=== PATIENT | female | born 1945 | race Caucasian/White ===

== ENCOUNTER → 2018-08-17 | Outpatient (CLI) | payer MEDICARE ==
[~2018-08-17] MED LIST: AMLO5TAB7 PO; ASPI-630 PO; ATOR20TA PO; CALC-77 PO; CARV6.2511 PO; CYAN100031 PO; DOCU-109 PO; HYDR-3164 PO; HYDR12.58 PO; METH-38 PO; NAPR220T70 PO; SERT25TA PO
--- NOTE | 2018-08-17 16:02 | EKG ---
[facility] [address] [place] [address] Test Date: 2018-08-17 Test Time: 15:58:17 Pat Name: DEANDRE STODDARD Department: Room: Gender: F Captain Assistant: DANY : 1945 Requested By: STEPHANIA VALERO Order Number: [id number] Reading MD: Ryan Jane Measurements Intervals [place] Rate: 65 P: 71 MD: 182 QRS: 79 QRSD: 78 T: 107 QT: 406 QTc: 423 Interpretive Statements SINUS RHYTHM INTERPOLATED VENTRICULAR PREMATURE COMPLEX(ES) QRS(T) CONTOUR ABNORMALITY CONSISTENT WITH ANTEROSEPTAL INFARCT AGE UNDETERMINED ABNORMAL ECG RI6.01 No previous ECG available for comparison Electronically Signed On 08-18-2018 15:41:47 CLINICAL SUPPORT TECH by Ryan Jane
[2018-08-17 16:17] LABS: BASO % 1 % (0-3); EOS # 0.3 x10^3/uL (0.0-0.7); EOS % 4 % (0-3); HEMATOCRIT 40.1 % (36.0-47.0); HEMOGLOBIN 13.4 g/dL (12.0-15.5); LYMPH # 2.9 x10^3/uL (1.0-4.8); LYMPH % 35 % (24-48); MEAN CORPUSCULAR HEMOGLOBIN 33 pg (25-35); MEAN CORPUSCULAR HGB CONC 33 g/dL (31-37); MEAN CORPUSCULAR VOLUME 98 fL (79-100); MONO # 0.7 x10^3/uL (0.0-1.1); MONO % 8 % (0-9); NEUT # 4.3 x10^3uL (1.8-7.7); NEUT % 53 % (31-73); PLATELET COUNT 210 x10^3/uL (140-400); RED BLOOD COUNT 4.12 x10^6/uL (3.50-5.40); RED CELL DISTRIBUTION WIDTH 13.2 % (11.5-14.5); WHITE BLOOD COUNT 8.2 x10^3/uL (4.0-11.0)
[2018-08-17 16:45] LABS: ALBUMIN 4.1 g/dL (3.4-5.0); ALBUMIN/GLOBULIN RATIO 1.2 (1.0-1.7); CALCIUM 10.5 mg/dL (8.5-10.1); GFR 54.1; POTASSIUM 3.9 mmol/L (3.5-5.1); TOTAL BILIRUBIN 0.3 mg/dL (0.2-1.0); TOTAL PROTEIN 7.4 g/dL (6.4-8.2)
== END | disposition home or self-care (01) ==
LOC: SURGPAT 13:30
PROVIDERS: ATTEND Neurological Surgery
DX: Z01.818 Encounter for other preprocedural examination (principal); M48.062 Spinal stenosis, lumbar region with neurogenic claudication; M54.16 Radiculopathy, lumbar region
CPT/HCPCS: 36415; 80053; 85025; 87641; 93005

== ENCOUNTER 2018-08-24 07:19 | Day surgery (SDC) | payer MEDICARE ==
--- NOTE | 2018-08-19 15:32 | PREOP HP ---
DATE OF SERVICE: 08/24/2018 HISTORY OF PRESENT ILLNESS: The patient is a pleasant 73-year-old who is having problem with low back pain and pain, which radiates into her posterior thighs and legs. The problem started on the left side, but there is involvement of the bilateral pain. The problem has been present for years, but became significant about 14 months ago. She rates her pain as an 8-9/10 in the morning and then during the day 2-3/10. Walking causes significant pain following day. She takes Aleve. She takes epidural steroid injections, recently 6 weeks ago. She went through physical therapy in late 2017, which has made the problem worse. PAST MEDICAL HISTORY: Hypertension, dyslipidemia, depression, arthritis, PVC. PAST SURGICAL HISTORY: Breast biopsy, pericardial window, cataract surgery. FAMILY HISTORY: Cancer, heart disease, hypertension. SOCIAL HISTORY: Retired. . Smokes 1 pack per day for 50 years. Drinks alcohol 1-2 times per month. ALLERGIES: AMITRIPTYLINE, WELLBUTRIN AND PRILOSEC. CURRENT MEDICATIONS: Aleve, aspirin, hydrochlorothiazide, Coreg, sertraline, atorvastatin, amlodipine, vitamin B12, vitamin D3. REVIEW OF SYSTEMS: A 12-point review of systems was obtained and is noncontributory except for that mentioned above. PHYSICAL EXAMINATION: NEUROSURGERY EXAMINATION: GENERAL APPEARANCE: Alert, pleasant, in no distress. HEAD: Normocephalic and atraumatic. SKIN: Warm and dry. MUSCULOSKELETAL: Lumbar paraspinal muscle bulk is normal, restricted range of motion of the lumbar spine, [id number] tenderness of lower lumbar spine with palpation, normal range of motion of the lower extremities bilaterally. EXTREMITIES: No clubbing, cyanosis or edema. NEUROLOGIC: Alert, oriented x 3, normal recent and remote memory, strength 5/5 in bilateral lower extremities, sensory intact to light touch and normal bilateral lower extremities, reflexes are present and symmetric in the lower extremities bilaterally, negative straight leg raising bilaterally, normal gait. IMAGING: I reviewed a lumbar MRI scan. There are multilevel degenerative problems. She has good degree of stenosis present at L3-L4 along with neural foraminal and lateral recess narrowing. At L4-L5, there is more significant stenosis present with the thecal sac measuring 0.6 cm. At L5-S1, there is bulging disk and neural foraminal narrowing with effacement of right lateral thecal sac. ASSESSMENT/PLAN: I believe her problems are primarily related to the stenosis at L4-L5 as well as the right-sided nerve root compression at L5-S1. My recommendation is that she consider a bilateral microdecompressive surgery at L4-L5 combined with right-sided microdecompression, L5-S1. I spoke with her about the surgery and the risks involved. I explained that she may be in the future developing problems at L3-L4 and requiring further surgery at that location, but I felt the problem currently was in the lower 2 levels of her lower back. She would like to proceed. We will make the arrangements. STEPHANIA VALERO MD DR: CAMMY/j luis JOB#: [id number] / [id number] YUNIEL
[~2018-08-24] VITALS: Ht 154.9 cm; Wt 56.7 kg
[~2018-08-24 07:19] MED LIST changes: +BACITRACIN 50,000 UNIT in IV NORMAL SALINE 1000ML BAG 1,000 ML IRR ONE; +BUPIVAC MPF-EPI 0.5%-1:200000 30 ML VIAL. ONE; -CARV6.2511 PO; +CARV6.252 PO; -DOCU-109 PO; +GELATIN SPONGE SIZE 100. ONE; -HYDR-3164 PO; +HYDROmorphone 2 MG/ML VIAL IV PRN; +IV RINGERS,LACTATED 1000ML 1,000 ML IV SCH; +KETOROLAC 60 MG/2 ML INJ FOR OR. ONE; +LIDOCAINE 1% PF 2 ML VIAL. ID PRN; -METH-38 PO; +MORPHINE SULFATE 2 MG/ML VIAL. IV PRN; +ONDANSETRON PF 4 MG/2 ML VIAL. IV PRN; +PROCHLORPERAZINE 10 MG/2 ML VIAL. IV PRN; +THROMBIN TOPICAL 20,000 UNIT SPRAY.SYRN KIT TP ONE; +fentaNYL PF VIAL 100 MCG/2 ML VIAL IV PRN
[2018-08-24] MEDS ORDERED: ePHEDrine PF IN SALINE 50 MG/5 ML DISP.SYRIN IV ONE (08:16)
[2018-08-24] MEDS ORDERED: PHENYLEPHRINE in 0.9% NACL PF 1 MG/10 ML SYRINGE. IV ONE (08:16)
[2018-08-24] MEDS ORDERED: PROPOFOL 50 ML IV ONE (08:17)
[2018-08-24] MEDS ORDERED: ONDANSETRON PF 4 MG/2 ML VIAL. ONE (08:17)
[2018-08-24] MEDS ORDERED: DEXAMETHASONE SOD PHOS 20 MG/5 ML VIAL. ONE (08:17)
[2018-08-24] MEDS ORDERED: PROPOFOL 20 ML IV ONE (08:17)
[2018-08-24] MEDS ORDERED: LIDOCAINE 2% PF Vial for OR 5 ML VIAL. ONE (08:17)
[2018-08-24] MEDS ORDERED: ROCURONIUM 50 MG/5 ML VIAL. ONE (08:18)
[2018-08-24] MEDS ORDERED: REMIFENTANIL 2 MG VIAL. IV ONE (08:18)
[2018-08-24] MEDS ORDERED: fentaNYL PF VIAL 100 MCG/2 ML VIAL ONE ×2 (08:19→12:34)
[2018-08-24] MEDS ORDERED: NEOSTIGMINE METHYLSULFATE 5 MG/5 ML SYRINGE. ONE (09:55)
--- NOTE | 2018-08-24 10:26 | DISCH ---
DISCHARGE INSTRUCTIONS Condition on Discharge Condition on Discharge: Stable Activity After Discharge Activity Instructions for Disc: Activity as tolerated, Avoid exertion Bathing Instructions: Shower-keep dressing dry Lifting Instructions after Dis: No heavy lifting, No pulling or pushing, Do not lift >10 pounds Diet after Discharge Additional Diet Restrictions: resume home diet Wound Incision Care Wound/Incision Care: Ice to area for comfort Other wound/incision instructi: may remove dressing in 48 hrs if dry then may shower, no soaking Contacting the DRAlexey after DC Call your doctor for: Concerns you may have Follow-Up Follow up with: Dr. Valero's nurse in 2 weeks [phone] STEPHANIA VALERO MD Aug 24, 2018 10:26
[2018-08-24] MEDS ORDERED: DOCU-109 PO (10:38)
[2018-08-24] MEDS ORDERED: METH-38 PO (10:38)
[2018-08-24] MEDS ORDERED: HYDR-3164 PO (10:38)
[2018-08-24] MEDS ORDERED: DESFLURANE > 120 MINUTES IH ONE (12:03)
[2018-08-24] MEDS: fentaNYL PF VIAL 100 MCG/2 ML VIAL IV PRN ×2 (12:40→12:53)
[2018-08-24] MEDS ORDERED: HYDROcodone/APAP 5/325MG 1 TAB TABLET ONE (13:23)
[2018-08-24] MEDS ORDERED: HYDROcodone/APAP 5/325MG 1 TAB TABLET PO ONE (13:30)
[2018-08-24 14:40] VITALS: BP 115/68
--- NOTE | 2018-08-26 16:09 | PATHOLOGY ---
[facility] Accession Number: [id number] . 01 Material submitted: . LUMBAR DECOMPRESSION . 01 Clinical history: . Lumbar stenosis and neurogenic claudication, radiculopathy . 02 Diagnosis: "Lumbar decompression", decompression: - Decalcified bone, articular cartilage, periosteum, synovium, skeletal muscle, and fibroadipose connective tissue with reactive/degenerative changes and reactive synovial hyperplasia (see comment). (CLW:archana; 08/26/2018) QMS/08/26/2018 . 02 Comment: The synovium additionally has mild chronic inflammation, focal necrosis, and a foreign body type giant cell response/granulomatous inflammation. The synovial findings can be seen in the setting of rheumatoid arthritis. Correlation with clinical history, radiographic findings, and additional laboratory data is recommended. (CLW:archana; 08/26/2018) . 02 Electronically signed: . Zoya Bruno MD, Pathologist NPI- [id number] . 01 Gross description: . Received in formalin labeled "Guadalupe Aguirre, lumbar decompression," are several pieces of glistening, fibrous tissue measuring 6.1 x 4.2 x 1.5 cm in aggregate dimensions, containing small fragments of possible bone. The tissue submitted representatively in cassette A1, following decalcification. (TSD; 08/24/2018) TOB/TOB . 02 Pathologist provided ICD-10: M67.88, M51.36 . 02 CPT . 353752, 402231 Specimen Comment: A courtesy copy of this report has been sent to Specimen Comment: [phone], . Specimen Comment: Report sent to / DR PALACIOS Performed at: [address] [place], [place] [address] [address], [place], [place] [id number] MD Reji Tam MD Phone: [phone] Performed at: [address] [id number] MD Ron Mcnulty MD Phone: [phone]
--- NOTE | 2018-08-26 19:00 | OP ---
DATE OF SURGERY: 08/24/2018 PREOPERATIVE DIAGNOSIS: Lumbar spinal stenosis with neurogenic claudication, L4-L5 and L5-S1. OPERATION PERFORMED: 1. Bilateral lumbar micro decompressive hemilaminotomies L4-L5. 2. Right hemilaminotomy with decompression of dura and nerve root, L5-S1. The operation was done with EMG monitoring, SSEP monitoring, fluoroscopy, microscopic dissection. Abigail Loco assisted with the surgery. She assisted with the exposure, the microdecompression as well as closure. OPERATIVE INDICATIONS: The patient is a very pleasant 73-year-old woman who developed intractable back and bilateral leg pain, left greater than right and was found to have severe stenosis at L4-L5 and right-sided lateral recess narrowing at L5-S1 and I recommended 2-level lumbar microsurgical decompression. I spoke with her about the surgery, the risks, technique and expected postoperative course and she wished to go ahead. DESCRIPTION OF PROCEDURE: Following general endotracheal anesthesia, the patient was positioned prone on the operating room table. Lumbar region prepped and draped in standard fashion. EMMA hose and AV impulse boots were applied for DVT prophylaxis. Microscope was draped. Fluoroscopy was draped, brought into the field. Monitoring was established. Ancef 2 grams was given less than 1 hour prior to initiation of the surgery. Using fluoroscopic guidance, a midline incision was made from L4 through S1. I dissected down through skin and subcutaneous tissue and on the right side, exposed both L4-L5 and L5-S1. I brought in the microscope and using the high speed air drill, I burred down a generous hemilaminotomy first at L5-S1 and then working superiorly to L4-L5. By first drilling away with a high speed air drill the laminar opening exposing the ligamentum flavum beneath, I then peeled the ligamentum flavum away from medial to lateral and I did work laterally to the medial edge of the pedicle and performed a partial foraminotomy. I fully decompressed the entire region. I did palpate the disk. It was bulging slightly, but very firm and no diskectomy was warranted. This was at L5-S1 and the identical operation was done at L4-L5. I then went to the left side in a similar fashion, exposed L4-L5 and again through the microscope, burred down a generous hemilaminotomy and peeled away the thickened ligamentum flavum and performed a generous partial foraminotomy. There was considerable lateral stenosis and I gently and gingerly worked and peeled this material away. I did palpate the disk at L4-L5. It was firm and no diskectomy was warranted. I explored carefully. There were no retained fragments. Hemostasis was excellent. I did use bone wax as well as bipolar cautery wherever necessary for the decompression. I irrigated copiously. I explored bilaterally and then after I was pleased with the hemostasis in surgery, I closed the wound in layers with absorbable suture. Skin was closed with 4-0 subcuticular stitch. The operation went very well and the patient was taken to the recovery room uneventfully in excellent condition. I was quite pleased with the surgery. STEPHANIA VALERO MD DR: CAMMY/j luis JOB#: [id number] / [id number]
== END 2018-08-24 14:40 | disposition home or self-care (01) ==
LOC: SURG 07:19
PROVIDERS: ATTEND Neurological Surgery
DX: M48.062 Spinal stenosis, lumbar region with neurogenic claudication (principal); I10 Essential (primary) hypertension; E78.5 Hyperlipidemia, unspecified; F32.9 Major depressive disorder, single episode, unspecified; M19.90 Unspecified osteoarthritis, unspecified site; Z98.890 Other specified postprocedural states; Z82.49 Family history of ischemic heart disease and other diseases of the circulatory system; F17.210 Nicotine dependence, cigarettes, uncomplicated; Z72.89 Other problems related to lifestyle; Z88.8 Allergy status to other drugs, medicaments and biological substances; Z79.82 Long term (current) use of aspirin; Z79.899 Other long term (current) drug therapy
CPT/HCPCS: 63047; 63048; 76000; 97162; 97530; A7015; G8978; G8979; G8980; J0690; J1100; J1885; J2001; J2405; J2704; J2710; J3010; J3490; J7030; J7120; J2370

== ENCOUNTER 2021-03-14 00:06 | Emergency (ER) | payer MEDICARE ==
[~2021-03-14] VITALS: Ht 157.5 cm; Wt 72.0 kg
[~2021-03-14 00:06] MED LIST changes: +AMLO-186 PO; -AMLO5TAB7 PO; -BACITRACIN 50,000 UNIT in IV NORMAL SALINE 1000ML BAG 1,000 ML IRR ONE; -BUPIVAC MPF-EPI 0.5%-1:200000 30 ML VIAL. ONE; +CARV6.2511 PO; -CARV6.252 PO; +DOCU-109 PO; -GELATIN SPONGE SIZE 100. ONE; +HYDR-3164 PO; -HYDROmorphone 2 MG/ML VIAL IV PRN; -IV RINGERS,LACTATED 1000ML 1,000 ML IV SCH; -KETOROLAC 60 MG/2 ML INJ FOR OR. ONE; -LIDOCAINE 1% PF 2 ML VIAL. ID PRN; +METH-38 PO; -MORPHINE SULFATE 2 MG/ML VIAL. IV PRN; -ONDANSETRON PF 4 MG/2 ML VIAL. IV PRN; -PROCHLORPERAZINE 10 MG/2 ML VIAL. IV PRN; -THROMBIN TOPICAL 20,000 UNIT SPRAY.SYRN KIT TP ONE; -fentaNYL PF VIAL 100 MCG/2 ML VIAL IV PRN
--- NOTE | 2021-03-14 00:15 | PHYS DOC ---
General Adult EDM: Chief Complaint: BACK PAIN - NO INJURY HPI: HPI: Patient is a 75-year-old female presenting with POV for back pain. Reports onset was at 11 PM last night, approximately 1-1/2 hours prior to arrival. Was at rest, no trauma or inciting event, reports having pain that originated deep in her back and radiated around bilateral chest burns to the front of her chest. Leaning forward makes better, laying down, standing up and deep breaths in and out make worse. Pain is deep. Besides radiation from back to front, there is no radiation to extremities or jaw. Denies history of coronary artery disease but does admit prior history of pericardial effusion requiring pericardiocentesis and subsequent window in 2016. She takes 81 mg aspirin daily and high intensity statin, reports taking 324 mg aspirin in addition to her 81 mg aspirin prior to arrival because she was scared. Reports being seen in outpatient setting by Dr. Payne, wig sales consultant at [facility]. Denies any recent sickness, fever, URI symptoms, falls, trauma, cough, abdominal pain, dy suria, no recent sick contacts, no travel, no major changes in health. She admits to tobacco use, denies alcohol and illicit drug use Review of Systems: Review of Systems: Fourteen body systems of review of systems have been reviewed. See HPI for pertinent positives and negative responses, other gomez all other systems are negative, non-pertinent or non-contributory Heart Score: C/O Chest Pain: Yes HEART Score for Chest Pain: HEART Score for Chest Pain Response (Comments) Value History Moderately Suspicious 1 ECG Normal 0 Age > 65 2 Risk Factors >3 Risk Factors or Hx CAD 2 Troponin < Normal Limit 0 Total 5 Risk Factors: Risk Factors: DM, Current or recent (<one month) smoker, HTN, HLP, family history of CAD, obesity. Risk Scores: Score 0 - 3: 2.5% MACE over next 6 weeks - Discharge Home Score 4 - 6: 20.3% MACE over next 6 weeks - Admit for Clinical Observation Score 7 - 10: 72.7% MACE over next 6 weeks - Early Invasive Strategies Allergies: Allergies: Allergies Coded Allergies Type Severity Reaction Last Updated Verified amitriptyline Adverse Reaction Intermediate Hives 08/17/18 Yes bupropion Adverse Reaction Intermediate Hives 08/17/18 Yes omeprazole Adverse Reaction Intermediate Hives 08/17/18 Yes Physical Exam: PE: Constitutional: Well developed, well nourished, no acute distress, non-toxic appearance. HENT: Normocephalic, atraumatic, bilateral external ears normal, oropharynx moist, no oral exudates, nose normal. Eyes: PERRLA, EOMI, conjunctiva normal, no discharge. Neck: Normal range of motion, no tenderness, supple, no stridor. Cardiovascular: Heart rate regular, sinus rhythm, no murmurs rubs or gallops Lungs & Thorax: Bilateral breath sounds clear to auscultation Abdomen: Bowel sounds normal, soft, no tenderness, no masses, no pulsatile masses. Nonsurgical abdomen, no peritoneal signs Skin: Warm, dry, no erythema, no rash. Back: No tenderness, no CVA tenderness. Extremities: No tenderness, no cyanosis, no clubbing, ROM intact, no edema. Neurologic: Alert and oriented X 3, grossly normal motor & sensory function, no focal deficits noted. Psychologic: Affect normal, judgement normal, mood normal. Current Patient Data: Labs: Laboratory Tests Test 03/14/21 01:51 03/14/21 02:40 White Blood Count 13.9 x10^3/uL Red Blood Count 3.84 x10^6/uL Hemoglobin 12.2 g/dL Hematocrit 36.8 % Mean Corpuscular Volume 96 fL Mean Corpuscular Hemoglobin 32 pg Mean Corpuscular Hemoglobin Concent 33 g/dL Red Cell Distribution Width 13.6 % Platelet Count 226 x10^3/uL Neutrophils (%) (Auto) 76 % Lymphocytes (%) (Auto) 13 % Monocytes (%) (Auto) 9 % Eosinophils (%) (Auto) 2 % Basophils (%) (Auto) 0 % Neutrophils # (Auto) 10.5 x10^3/uL Lymphocytes # (Auto) 1.8 x10^3/uL Monocytes # (Auto) 1.2 x10^3/uL Eosinophils # (Auto) 0.3 x10^3/uL Basophils # (Auto) 0.1 x10^3/uL Sodium Level 144 mmol/L Potassium Level 3.6 mmol/L Chloride Level 106 mmol/L Carbon Dioxide Level 27 mmol/L Anion Gap 11 Blood Urea Nitrogen 34 mg/dL Creatinine 1.1 mg/dL Estimated GFR (Cockcroft-Gault) 48.2 Glucose Level 135 mg/dL Calcium Level 9.2 mg/dL Troponin I Quantitative < 0.017 ng/mL XI-Vut-Q-Type Natriuretic Peptide 258 pg/mL D-Dimer (Ayesha) 1.06 ug/mlFEU Current Medications Medications (Trade) Dose Ordered Sig/Stephon Route PRN Reason Start Time Stop Time Status Last Admin Dose Admin Nitroglycerin (Nitrostat) 0.4 mg PRN Q5MIN PRN SL CP RATING > 1/10 03/14/21 01:00 03/15/21 00:59 03/14/21 00:53 Iohexol (Omnipaque 300 Mg/ml) 60 ml 1X ONCE IV 03/14/21 03:30 03/14/21 03:31 Cancel Info (CONTRAST GIVEN -- Rx MONITORING) 1 each PRN DAILY PRN MC SEE COMMENTS 03/14/21 03:30 03/16/21 03:29 Iohexol (Omnipaque 350 Mg/ml) 100 ml 1X ONCE IV 03/14/21 03:30 03/14/21 03:31 DC 03/14/21 03:35 Morphine Sulfate (Morphine Sulfate) 4 mg 1X ONCE IV 03/14/21 03:45 03/14/21 03:46 DC 03/14/21 03:54 Vital Signs: Vital Signs Date Time Temp Pulse Resp B/P (MAP) Pulse Ox O2 Delivery O2 Flow Rate FiO2 03/14/21 00:15 97.8 70 18 170/74 (106) 97 Room Air 97.8 Vital Signs Date Time Temp Pulse Resp B/P (MAP) Pulse Ox O2 Delivery O2 Flow Rate FiO2 03/14/21 00:15 97.8 70 18 170/74 (106) 97 Room Air 97.8 EKG: EKG: EKG ordered and interpreted by myself at 011 9 hours as sinus rhythm with occasional PVC at 77 bpm, QTC 484 otherwise unremarkable intervals, no axis deviation, no acute ischemic findings, no STEMI EKG ordered and interpreted by myself at 0209 hrs. as sinus rhythm with PVCs at 71 bpm, unremarkable intervals, no axis deviation, T wave inversions noted to V5 and V6 otherwise no STEMI Radiology/Procedures: Radiology/Procedures: Chest AP portable at 0102: Reason for examination: Chest pain. The heart size is normal. Mediastinum is unremarkable. Lung jara are clear. No acute bony abnormalities are seen. IMPRESSION: No acute cardiopulmonary disease evident. Electronically signed by: Mima Smith MD (03/14/2021 1:54 AM) REENA //////////////////// CT angiogram of the chest with contrast: Reason for examination: Chest pain. Helical images were obtained through the chest with intravenous administration of 75 cc Omnipaque 350 using angiographic protocol. 3-D MIPS reconstruction was performed in sagittal and coronal planes. Exposure: One or more of the following individualized dose reduction techniques were utilized for this examination: 1. Automated exposure control 2. Adjustment of the mA and/or kV according to patient size 3. Use of iterative reconstruction technique. No abnormality seen at the thyroid gland. The trachea and mainstem bronchi show no intraluminal lesions. No abnormality seen at the esophagus. The thoracic aorta is normal in course and caliber with some arteriosclerotic vascular calcification but no aneurysmal dilatation or dissection. The heart size is enlarged with a small amount of pericardial fluid. There is no evidence of pulmonary embolus. The lung jara show some pleural thickening/dependent atelectasis posteriorly at the lung bases, right greater than left. No consolidated infiltrates or pleural effusions are seen. No acute bony abnormality seen in the thorax. No abnormality seen in the visualized portions of the liver, spleen or adrenal glands. IMPRESSION: No evidence of pulmonary embolus. Pleural thickening versus dependent atelectasis posteriorly at both lung bases, right greater than left. No other acute cardiopulmonary disease evident. Electronically signed by: Mima Smith MD (03/14/2021 3:59 AM) REENA Course & Med Decision Making: Course & Med Decision Making Discussed with the patient all findings and diagnostic testing. I discussed most likely diagnosis of chest/back pain of unknown etiology, likely self-limiting and musculoskeletal in etiology. With that said, I reviewed heart score with patient, I discussed despite thorough work-up in ER she is high risk for adverse cardiac events and recommended hospital admission for cardiac observation, she declined. She cites having good access to primary care and wig sales consultant in outpatient setting and prefers to follow-up with them by the end of the week. Given that she has good access to care and is previously established with her wig sales consultant at [facility], I feel this is reasonable. I did recommend admission again but patient and were adamant about discharge home. As such, I stressed need for close outpatient follow-up to review today's ER visit. Strict return precautions were also discussed at length with good understanding by patient. Patient voiced understanding and agreement with the plan. Patient knows to come back for repeat evaluation if concerning signs or symptoms present prior to outpatient follow-up. Hemodynamically stable, ambulatory and well-appearing at time of disposition. Dragon Disclaimer: Dragon Disclaimer: This electronic medical record was generated, in whole or in part, using a voice recognition dictation system. Ultrasound Ultrasound : Ultrasound: normal Progress Bedside ultrasound performed and interpreted by myself, subxiphoid view of heart unremarkable for any acute/emergent abnormalities. No significant pericardial effusion seen, no gross heart wall abnormalities noted Departure Departure Impression: Primary Impression: Nonspecific chest pain Disposition: HOME / SELF CARE / HOMELESS Condition: STABLE Referrals: JAMES PALACIOS MD (PCP) Patient Instructions: Chest Pain (Nonspecific) Additional Instructions: You were seen for chest pain. Your workup did not show any acute abnormalities today, but does not indicate that you do not have underlying cardiovascular disease or could suffer from an adverse cardiac event. It was recommended that you be admitted for cardiac observation but you declined. As such, it is pertinent that you contact your primary care and wig sales consultant first thing in the morning to review ER visit today and need for close outpatient follow-up. You should return to the ED if you develop worsening chest pain, shortness of breath, fever, abnormal sweating, leg swelling, or any other new or concerning symptoms. KARY STEWART DO Mar 14, 2021 00:15
[2021-03-14] MEDS ORDERED: NITROGLYCERIN SUBLINGUAL 0.4 MG BOTTLE OF 25. SL PRN (01:00)
--- NOTE | 2021-03-14 01:56 | RAD ---
Chest AP portable at 0102: Reason for examination: Chest pain. The heart size is normal. Mediastinum is unremarkable. Lung jara are clear. No acute bony abnormali ties are seen. IMPRESSION: No acute cardiopulmonary disease evident. Electronically signed by: Mima Smith MD (03/14/2021 1:54 AM) STEVEN
[2021-03-14 02:09] LABS: BASO # 0.1 x10^3/uL (0.0-0.2); BASO % 0 % (0-3); EOS # 0.3 x10^3/uL (0.0-0.7); EOS % 2 % (0-3); HEMATOCRIT 36.8 % (36.0-47.0); HEMOGLOBIN 12.2 g/dL (12.0-15.5); LYMPH # 1.8 x10^3/uL (1.0-4.8); LYMPH % 13 % (24-48); MEAN CORPUSCULAR HEMOGLOBIN 32 pg (25-35); MEAN CORPUSCULAR HGB CONC 33 g/dL (31-37); MEAN CORPUSCULAR VOLUME 96 fL (79-100); MONO # 1.2 x10^3/uL (0.0-1.1); MONO % 9 % (0-9); NEUT # 10.5 x10^3/uL (1.8-7.7); NEUT % 76 % (31-73); PLATELET COUNT 226 x10^3/uL (140-400); RED BLOOD COUNT 3.84 x10^6/uL (3.50-5.40); RED CELL DISTRIBUTION WIDTH 13.6 % (11.5-14.5); WHITE BLOOD COUNT 13.9 x10^3/uL (4.0-11.0)
--- NOTE | 2021-03-14 02:12 | EKG ---
[facility] [address] [place] [address] Test Date: 2021-03-14 Test Time: 02:03:11 Pat Name: DEANDRE STODDARD Department: Room: Gender: F Travel Agency Manager: : 1945 Requested By: KARY STEWART Order Number: [id number] Reading MD: Measurements Intervals [place] Rate: 71 P: 31 [place]: 164 QRS: 26 QRSD: 76 T: 51 QT: 404 QTc: 444 Interpretive Statements SINUS RHYTHM INTERPOLATED VENTRICULAR PREMATURE COMPLEX(ES) LEFT ATRIAL ABNORMALITY ABNORMAL ECG RI6.02 Compared to ECG 03/14/2021 00:13:33 Prolonged QT interval no longer present
--- NOTE | 2021-03-14 02:13 | EKG ---
[facility] [address] [place] [address] Test Date: 2021-03-14 Test Time: 00:13:33 Pat Name: DEANDRE STODDARD Department: Room: Gender: F Blockman: : 1945 Requested By: KARY STEWART Order Number: [id number] Reading MD: Measurements Intervals [place] Rate: 77 P: 31 [place]: 158 QRS: 28 QRSD: 80 T: 15 QT: 426 QTc: 484 Interpretive Statements SINUS RHYTHM INTERPOLATED VENTRICULAR PREMATURE COMPLEX(ES) LEFT ATRIAL ABNORMALITY PROLONGED QT ABNORMAL ECG RI6.02 No previous ECG available for comparison
[2021-03-14 02:19] LABS: CALCIUM 9.2 mg/dL (8.5-10.1); CREATININE 1.1 mg/dL (0.6-1.0); GFR 48.2; POTASSIUM 3.6 mmol/L (3.5-5.1)
[2021-03-14] MEDS ORDERED: CONTRAST GIVEN. MC PRN (03:30)
[2021-03-14] MEDS ORDERED: IOHEXOL 350 MG/ML 100 ML VIAL. IV ONE (03:30)
[2021-03-14] MEDS ORDERED: IOHEXOL 300 MG/ML 100ML VIAL. IV ONE (03:30)
[2021-03-14] MEDS ORDERED: MORPHINE SULFATE 4 MG/ML VIAL. IV ONE (03:45)
--- NOTE | 2021-03-14 04:01 | RAD ---
CT angiogram of the chest with contrast: Reason for examination: Chest pain. Helical images were obtained through the chest with intravenous administration of 75 cc Omnipaque 350 using angiographic protocol. 3-D MIPS reconstruction was performed in sagittal and coronal planes. Exposure: One or more of the following individualized dose reduction techniques were utilized for thi s examination: 1. Automated exposure control 2. Adjustment of the mA and/or kV according to patient size 3. Use of iterative reconstruction technique. No abnormality seen at the thyroid gland. The trachea and mainstem bronchi show no intraluminal lesio ns. No abnormality seen at the esophagus. The thoracic aorta is normal in course and caliber with reinaldo e arteriosclerotic vascular calcification but no aneurysmal dilatation or dissection. The heart size is enlarged with a small amount of pericardial fluid. There is no evidence of pulmonary embolus. The lung jara show some pleural thickening/dependent atelectasis posteriorly at the lung bases, right g reater than left. No consolidated infiltrates or pleural effusions are seen. No acute bony abnormalit y seen in the thorax. No abnormality seen in the visualized portions of the liver, spleen or adrenal glands. IMPRESSION: No evidence of pulmonary embolus. Pleural thickening versus dependent atelectasis posteriorly at both lung bases, right greater than le ft. No other acute cardiopulmonary disease evident. Electronically signed by: Mima Smith MD (03/14/2021 3:59 AM) REENA
[2021-03-14 04:30] VITALS: BP 116/70
== END 2021-03-14 04:42 | disposition home or self-care (01) ==
LOC: ER 00:06
DX: R07.89 Other chest pain (principal); Z88.8 Allergy status to other drugs, medicaments and biological substances
CPT/HCPCS: 36415; 71045; 71275; 80048; 83880; 84484; 85025; 85379; 93005; 96374; 99285; J2270; Q9967

== ENCOUNTER → 2021-06-27 | Outpatient (CLI) | payer MEDICARE ==
[~2021-06-27] MED LIST changes: +BUPIVACAINE MPF 0.25% 10 ML VIAL. ONE; +CHOL10004 PO; +IOHEXOL 180 MG/ML 10 ML VIAL. ONE; +methylPREDNISolone ACETATE 80 MG/ML VIAL. ONE
--- NOTE | 2021-06-27 15:41 | PDOC1 ---
INITIAL PAIN CONSULT DATE OF SERVICE: DOS: DATE: 06/27/21 TIME: 15:32 CHIEF COMPLAINT: Chief Complaint: Mid upper back pain Right shoulder joint pain Right knee joint pain HISTORY OF PRESENT ILLNESS: 75-year-old female presents with history of pain mid upper back as well as the right shoulder and right knee for many years worse over the past several months patient reports no specific injury or accident that she is aware of is been getting worse with time and general daily activities. Patient reports pain in the mid upper back slightly more on the right than left started in February of this year without any specific injury is noted patient reports her right shoulder is the most painful area also right knee pain she has osteoarthritis documented in both these areas from previous x-rays although mild. Patient reports pain in the mid upper back is painful as well patient scribes pain is constant and throbbing in the back radiating the back as well above and below the shoulder blades medially, also laterally to the midaxillary line more on the right than the left as well. Patient reports is worse at night disturbs her from sleep about once or twice nightly does affect her bowel bladder control or ability to walk significantly except for the right knee which is worse with stepping on stairs or curbs her weight on her right leg. Right shoulder is tender with repetitive motions reaching forward and especially laterally with weightbearing reaching over her head with her right arm she is unable to do with the arm at this time secondary to pain in the shoulder. Patient rates her disability of 0- 10 10 being the worst is a 6 with family responsibilities recreation social act ivity and self-care 7 with occupation and 7 with life support activities specially sleeping. Patient did have MRI scan of thoracic spine showing multilevel degenerative disc disease with central disc protrusion at T7-8 contacting the anterior thoracic cord without cord deformation. Patient has right shoulder x-ray showing mild degenerative changes without fracture or acute dislocations no osteophyte formations as well. PAST MEDICAL HISTORY: PMH: Hypertension, vertigo, premature ventricular contractions, arthritis, osteopenia PREVIOUS SURGERIES: Past Surgical Hx: Right wrist surgery, tonsillectomy, bilateral cataract extractions, lumbar decompression, pericardial window CURRENT MEDICATIONS: Current Meds: Active Scripts Medications Dose Route/Sig Max Daily Dose Days Date Category Dose Instructions Vitamin D3 (Vitamin D) 25 Mcg Tablet 25 Mcg PO DAILY 06/27/21 Reported 1,000 UNITS = 25 MCG B-12 (Cyanocobalamin (Vitamin B-12)) 1,000 Mcg Tablet.er 1,500 Mcg PO DAILY 08/17/18 Reported Aleve (Naproxen Sodium) 220 Mg Tablet 220 Mg PO BID 08/17/18 Reported Amlodipine Besylate 5 Mg Tablet 5 Mg PO HS 08/17/18 Reported Lipitor (Atorvastatin Calcium) 20 Mg Tablet 20 Mg PO HS 08/17/18 Reported Zoloft (Sertraline Hcl) 25 Mg Tablet 25 Mg PO DAILY 08/17/18 Reported Carvedilol (Carvedilol) 6.25 Mg Tablet 6.25 Mg PO BIDWMEALS 08/17/18 Reported Hydrochlorothiazide Tablet (Hydrochlorothiazide) 12.5 Mg Tablet 12.5 Mg PO DAILY 08/17/18 Reported Aspirin 81 Mg Tab.chew 81 Mg PO DAILY 08/17/18 Reported Calcium + D3 Er Tablet (Calcium Carb & Cit/Vitamin D3) 1 Each Tablet.er 1 Each PO DAILY 08/17/18 Reported ALLERGIES; Allergies: Coded Allergies: amitriptyline (Verified Adverse Reaction, Intermediate, Hives, 08/17/18) bupropion (Verified Adverse Reaction, Intermediate, Hives, 08/17/18) omeprazole (Verified Adverse Reaction, Intermediate, Hives, 08/17/18) FAMILY HISTORY: Family Hx: Heart disease SOCIAL HISTORY: Social Hx: Patient drinks alcohol very rarely does not use any illegal illicit recreational drugs smoke cigarettes about 1 pack a day and has for 60 years continues to smoke patient is lives locally in [facility] and reports she is currently retired. REVIEW OF SYSTEMS: ROS: Positive for those items mentioned in history of present illness, all systems are reviewed, otherwise negative ,and are complete full and well-documented on patient's chart. PHYSICAL EXAM: VS: Blood pressure is 138/58 pulse 61 respirations 16 temperature is 98.1 F height 5 foot 1 his weight is 112 pounds PE: PHYSICAL EXAMINATION: GENERAL: The patient is awake, alert, oriented, appropriate, very pleasant in demeanor. HEENT: Shows normocephalic, atraumatic. Extraocular movements are intact and symmetrical. Oral cavity: Mucous membranes moist and pink. NECK: Shows anterior throat supple without palpable lymphadenopathy noted. Swallow reflex symmetrical. CHEST: Shows normal on inspection. Breath sounds are clear bilaterally, distant and somewhat coarse but no rales or rhonchi auscultated. HEART: Shows S1, S2 clear. No murmurs auscultated. ABDOMEN: Soft, nontender, nondistended. No palpable organomegaly is noted. No rebound or guarding demonstrated. BACK: Shows spine grossly in the midline. Normal-appearing cervical lordotic curvature. There is slightly increased thoracic kyphosis, some minor flattening of the lumbar lordotic curvature. Thoracic paraspinous muscles show symmetrical on inspection with palpation some significant tenderness bilaterally in the mid to upper distribution of the thoracic paraspinous musculature bilaterally but without specific radiation without trigger points asymmetry or atrophy or hyp ertrophy. Lumbar paraspinous muscles show symmetrical on inspection, on palpation shows some moderate tenderness diffusely throughout the upper, middle and lower distribution of the paraspinous muscles bilaterally and also into the lower thoracic paraspinous musculature, firm and tender, but without specific trigger points, without radiation of pain. The patient has good rotational motion of the lumbar spine, both laterally as well as extension and flexion without significant difficulty. No tenderness over the spinous processes, sacrum or sacroiliac regions. EXTREMITIES: Lower extremities show deep tendon reflexes 2+ in the patellar and tendo calcaneus tendons. Motor exam is 5 on a scale of 5 with right dorsiflexion, extension, quadriceps and hamstring flexion and 5/5 on the left. Peripheral pulses are 1+ posterior tibial. No peripheral edema is noted bilaterally. Lower extremities are warm and dry to touch, equal in color and appearance. Patient's right knee shows significant tenderness with medial and lateral collateral ligament palpation but not over the patellar tendon shows good range of motion however without crepitus or ratcheting as does the left. Upper extremity show deep tendon reflexes 2+ in the bicep tricep tendons, motor exam is 5 out of 5 on the left and 4-5 on the right with engraver picture strength bicep and tricep flexion. Patient's right shoulder shows significant tenderness over the anterior aspect of the deltoid as well as the acromioclavicular region with moderate tenderness with abduction very tender past 45 degrees patient is unable to raise her right hand over her head secondary to pain. Patient shows significant pain with shoulder shrug and resistance on the right but not the left history with abduction, as she is only able to abduct the right side about 45 degrees left side is 90 degrees plus. SKIN: Shows warm and dry, good turgor. No edema. No sores, rashes or bruising throughout. IMPRESSION: Impression: 75-year-old female with long history of mid upper back pain and radicular fashion Thoracic MRI scan as noted Right shoulder joint pain with osteoarthritis Right knee joint pain with osteoarthritis Hypertension Arthritis Osteopenia Plan: Options were discussed the case including conservative management is physical therapies interventional techniques. Patient like to pursue interventional techniques. As her right shoulder is her chief complaint we discussed intra-articular injection of the glenohumeral joint using descriptions as well as anatomical models to describe the procedure. Risk were discussed including not limited to bleeding flexion possibly intravascular injection se quelae spread local anesthetic numbness side effects steroid medication exposure fluoroscopy, and poor results regarding pain control. Patient understands wished to proceed. Patient supine position under sterile prep and drape using C-arm fluoroscopic gu idance patient's right shoulder was visualized and using 25-gauge needle 1% lidocaine was used to topically anesthetized area over the glenohumeral joint on the right. Using a 22-gauge Quincke needle with stylette the joint was entered under direct fluoroscopic visualization without difficulty stylet was removed at this time 2 cc of contrast was injected with good intra-articular spread in the shoulder joint without uptake. At this time 3 cc of 0.25% bupivacaine and 80 mg Depo-Medrol was then injected into the joint. Needle was removed and sterile bandage was applied. Patient tolerated the procedure well and had no complications. DILMA BROWN MD Jun 27, 2021 15:40
--- NOTE | 2021-06-27 15:42 | PDOC4 ---
Procedure Note: ICD 10 Code: ICD 10 Code: M2 5.511 M1 9.011 Procedure Note: Patient was consented for right intra-articular shoulder joint injection, glenohumeral with fluoroscopic guidance. Risk were discussed including not limited to bleeding infection possibly intravascular injection sequelae, spread local anesthetic numbness, side effects steroid medication, exposure fluoroscopy, and poor results regarding pain control. Patient understands wishes to proceed. Patient supine position under sterile prep and drape using C-arm fluoroscopic guidance patient's right shoulder was visualized and using 25-gauge needle 1% lidocaine was used to topically anesthetized area over the glenohumeral joint on the right. Using a 22-gauge Quincke needle with stylette the joint was entered under direct fluoroscopic visualization without difficulty stylet was removed at this time 2 cc of contrast was injected with good intra-articular spread in the shoulder joint without uptake. At this time 3 cc of 0.25% bupivacaine and 80 mg Depo-Medrol was then injected into the joint. Needle was removed and sterile bandage was applied. Patient tolerated the procedure well and had no complications. DILMA BROWN MD Jun 27, 2021 15:42
== END | disposition home or self-care (01) ==
LOC: PNCL 13:56
PROVIDERS: ATTEND Anesthesiology
DX: M19.011 Primary osteoarthritis, right shoulder (principal); M25.561 Pain in right knee; I10 Essential (primary) hypertension; M17.11 Unilateral primary osteoarthritis, right knee; F32.9 Major depressive disorder, single episode, unspecified; F17.210 Nicotine dependence, cigarettes, uncomplicated; Z79.82 Long term (current) use of aspirin; Z79.899 Other long term (current) drug therapy; Z98.890 Other specified postprocedural states; Z72.89 Other problems related to lifestyle; Z88.8 Allergy status to other drugs, medicaments and biological substances
CPT/HCPCS: 20610; 77002; J1040; J3490; Q9965

== ENCOUNTER → 2021-07-25 | Outpatient (CLI) | payer MEDICARE ==
[~2021-07-25] MED LIST changes: -BUPIVACAINE MPF 0.25% 10 ML VIAL. ONE; +methylPREDNISolone ACETATE 40 MG/ML VIAL. ONE
--- NOTE | 2021-07-25 11:27 | PDOC ---
Progress Note - Pain Clinic Date of Service: DOS: DATE: 07/25/21 TIME: 11:23 Diagnosis: Dx: Cervical radiculopathy with cervical degenerative disc disease Thoracic radiculopathy with thoracic degenerative disease Right shoulder pain with osteoarthritis Right knee joint pain with osteoarthritis History or Present Illness: HPI: 76-year-old female returns for follow-up status post right intra-articular shoulder joint injection patient reports about 30% improvement in his shoulder but still significant pain in the arm notices new pain that is in the neck and upper shoulder radiating through the shoulder into the right arm. Patient reports has become much more noticeable since her last visit still has excellent rotation of motion with the right shoulder and pain in the right arm however has become more noticeable in the neck as well patient reports now radiating from the neck into the arm much more than it was previously patient reports is an 8 on scale 10 is worse over the past week 6 on average 5 its least and is a 5 today patient was aching tight radiating worse with lifting items reaching forward reaching overhead with the right hand repetitive motions with the right arm and shoulder as well with pain in the base of the neck causing occasional headaches on the right side. Patient reports no bowel or bladder incontinence at this time patient reports she has been recent activity as tolerated but the r ight arm is limiting her fairly significantly. Patient reports no overt motor loss but some fine motor difficulties with the right hand when the pain is at its worst. Physical Exam: VS: Blood pressure is 116/77 pulse 67 respirations 18 temperature 98.5 F height 5 feet 1 inches weight is 112 pounds PE: PHYSICAL EXAMINATION: GENERAL: The patient is awake, alert, oriented, appropriate, very pleasant in demeanor HEENT: Shows normocephalic, atraumatic. Extraocular movements are intact and symmetrical. Oral cavity: Mucous membranes moist and pink. NECK: Shows anterior throat supple without palpable lymphadenopathy noted. Swallow reflex symmetrical. CHEST: Shows normal on inspection. Breath sounds are clear bilaterally, distant but no rales or rhonchi. HEART: Shows S1, S2 clear. No murmurs auscultated. ABDOMEN: Soft, nontender, nondistended. No palpable organomegaly is noted. BACK: Shows spine grossly in the midline. Normal-appearing cervical lordotic curvature. Cervical paraspinous muscles show symmetrical with inspection, palpation some moderate tenderness diffusely bilaterally in the inferior aspect the cervical paraspinous musculature more on the right than the left and in 2 the superior medial trapezius but without specific trigger points. Patient shows full rotation motion cervical spine both laterally as well as full extension full forward flexion without significant difficulty. There is slightly increased thoracic kyphosis, some minor flattening of the lumbar lordotic curvature. Lumbar paraspinous muscles show symmetrical on inspection, on palpation shows some moderate tenderness diffusely throughout the upper, middle and lower distribution of the paraspinous muscles, but without specific trigger points, without radiation of pain. The patient has good rotational motion of the lumbar spine, both laterally as well as extension and flexion without significant difficulty. No tenderness over the spinous processes, sacrum or sacroiliac regions. EXTREMITIES: Upper extremities show deep tendon reflexes 2+ in the biceps and triceps tendons. Motor exam is 4 on a scale of 5 with right medical radiation therapist, biceps and triceps flexion and 5/5 on the left. Peripheral pulses are 2+ radial. No peripheral edema is noted bilaterally. Upper extremities are warm and dry to touch, equal in color and appearance. SKIN: Shows warm and dry, good turgor. No edema. No sores, rashes or bruising throughout. Procedure: Procedure: Options were discussed with the patient. Patient chart reviews her current medication regimen updated current review of systems updated today as well. We will proceed with a cervical epidural steroid injection today with fluoroscopic guidance. Risks were discussed including but not limited to: Bleeding, infection, possibility of epidural hematoma and subsequent neurological compromise, dural puncture, headaches, spinal cord and/or nerve damage, side effects of steroid medication, and poor results regarding pain control. Patient understands and wished to proceed. Patient will return to clinic in approximately 2 weeks for follow-up, was counseled as return appointment, activity level, and side effect to be aware of. Medication Injected: Med Injected: Procedure cervical epidural steroid injection at the C6-7 level, using local anesthetic under sterile prep and drape using C-arm fluoroscopic guidance under local anesthesia medications injected ;120 mg Depo-Medrol +5 mL normal saline and 2 mL contrast; condition at discharge is stable patient tolerated procedure well. and had no complications Condition at Discharge: Condition at Discharge: Condition at discharge is stable, patient tolerated procedure well had no complications. DILMA BROWN MD Jul 25, 2021 11:27
--- NOTE | 2021-07-25 11:27 | PDOC4 ---
Procedure Note: ICD 10 Code: ICD 10 Code: M54.12 M50.30 Procedure Note: Patient was consented for cervical epidural steroid injection with fluoroscopic guidance. Risks were discussed including but not limited to: Bleeding, infection, possibility of epidural hematoma and subsequent neurological compromise, dural puncture, headaches, spinal cord and/or nerve damage, side effects of steroid medication, and poor results regarding pain control. Patient understands and wished to proceed. Procedure cervical epidural steroid injection at the C6-7 level, using local anesthetic under sterile prep and drape using C-arm fluoroscopic guidance under local anesthesia medications injected ;120 mg Depo-Medrol +5 mL normal saline and 2 mL contrast; condition at discharge is stable patient tolerated procedure well. and had no complications DILMA BROWN MD Jul 25, 2021 11:27
== END | disposition home or self-care (01) ==
LOC: PNCL 10:37
PROVIDERS: ATTEND Anesthesiology
DX: M50.10 Cervical disc disorder with radiculopathy, unspecified cervical region (principal); M51.14 Intervertebral disc disorders with radiculopathy, thoracic region; M19.011 Primary osteoarthritis, right shoulder; M17.11 Unilateral primary osteoarthritis, right knee; F32.9 Major depressive disorder, single episode, unspecified; F17.210 Nicotine dependence, cigarettes, uncomplicated; Z79.82 Long term (current) use of aspirin; Z79.899 Other long term (current) drug therapy; Z98.890 Other specified postprocedural states; Z72.89 Other problems related to lifestyle; Z88.8 Allergy status to other drugs, medicaments and biological substances
CPT/HCPCS: 62321; J1030; J1040; Q9965

== ENCOUNTER → 2021-08-16 | Outpatient (CLI) | payer MEDICARE ==
[~2021-08-16] MED LIST changes: +BUPIVACAINE MPF 0.25% 10 ML VIAL. ONE; -methylPREDNISolone ACETATE 40 MG/ML VIAL. ONE
--- NOTE | 2021-08-16 10:20 | PDOC ---
Progress Note - Pain Clinic Date of Service: DOS: DATE: 08/16/21 TIME: 10:12 Diagnosis: Dx: Right shoulder joint pain with osteoarthritis Right knee joint pain with osteoarthritis Thoracic radiculopathy degenerative disc disease Cervical radiculopathy with cervical degenerative disc disease History or Present Illness: HPI: 76-year-old female returns for follow-up status post cervical epidural steroid injection x1. Patient reports about 30% improvement in the pain in the neck and shoulder but she was feeling better and was lifting a mole trap out of her yard and heard a "pop" in her right shoulder with pain radiating into the anterior bicep as well as into the lateral deltoid. Patient reports the pain and continues to radiate in the right shoulder and into the bicep and somewhat of the forearm but not into the hand or fingers. Patient reports her neck is doing much better much better range of motion. Patient reports her pain in the shoulder and arm is a 10 on scale 10 is worse with past week 8 on average 7 its least is an 8 today. Patient reports no loss of motor function but significant fatigability especially with reaching forward with weightbearing as well as laterally. Physical Exam: VS: Blood pressure is 152/76 pulse 64 respirations 16 temperature 98.0 F height is 5 foot 1 his weight is 111 pounds PE: PHYSICAL EXAMINATION: GENERAL: The patient is awake, alert, oriented, appropriate, very pleasant in demeanor HEENT: Shows normocephalic, atraumatic. Extraocular movements are intact and symmetrical. Oral cavity: Mucous membranes moist and pink. NECK: Shows anterior throat supple without palpable lymphadenopathy noted. Swallow reflex symmetrical. CHEST: Shows normal on inspection. Breath sounds are clear bilaterally, no rales or. HEART: Shows S1, S2 clear. No murmurs auscultated. ABDOMEN: Soft, nontender, nondistended. No palpable organomegaly is noted. BACK: Shows spine grossly in the midline. Normal-appearing cervical lordotic curvature. Cervical paraspinous muscles show symmetrical with inspection, on palpation some moderate tenderness diffusely bilaterally diffusely without sig nificant radiation. Patient shows full rotation motion cervical spine both laterally as well as full extension full forward flexion without exacerbation of pain or limitation of motion. There is slightly increased thoracic kyphosis, some minor flattening of the lumbar lordotic curvature. EXTREMITIES: Upper extremities show deep tendon reflexes 2+ in the biceps and triceps tendons. Motor exam is 4 on a scale of 5 with right rib, biceps and triceps flexion and 5/5 on the left. Peripheral pulses are 1+ radial. No peripheral edema is noted bilaterally. Right shoulder shows significant tenderness over the acromioclavicular joint superiorly and posteriorly with even moderate palpation. No radiation is demonstrated. Left side is nontender. Patient shoulder show good rotation of motion with abduction anterior posterior displacement without significant limitation but with pain reported on the right with anterior extension. Upper extremities are warm and dry to touch, equal in color and appearance. SKIN: Shows warm and dry, good turgor. No edema. No sores, rashes or bruising throughout. Procedure: Procedure: Options were discussed with the patient. Patient chart reviews her current medication regimen updated current review of systems updated today as well. We will proceed with a right acromioclavicular joint injection today with fluoroscopic guidance. Risk discussed including but not limited to bleeding infection possibility of intravascular injection sequelae spread local anesthetic numbness side effects steroid medication exposure fluoroscopy and portals regarding pain control. Patient understands wished to proceed. Patient return to clinic in approximately 4 weeks for follow-up, was counseled return appointment, activity level, and side effect to be aware of. Medication Injected: Med Injected: Patient supine position under sterile prep and drape using C-arm fluoroscopic guidance patient's right shoulder was visualized and using 25-gauge needle 1% lidocaine was used to topically anesthetized area over the chromic clavicular joint joint on the right. Using a 25-gauge Quincke needle with stylette the joint was entered under direct fluoroscopic visualization without difficulty stylet was removed at this time 1 cc of contrast was injected with good intra- articular spread in the shoulder joint without uptake. At this time 2 cc of 0.25% bupivacaine and 80 mg Depo-Medrol was then injected into the joint. Needle was removed and sterile bandage was applied. Patient tolerated the procedure well and had no complications. Condition at Discharge: Condition at Discharge: Condition at discharge stable, paced tolerated the procedure well had no complications. DILMA BROWN MD Aug 16, 2021 10:20
--- NOTE | 2021-08-16 10:21 | PDOC4 ---
Procedure Note: ICD 10 Code: ICD 10 Code: M2 5.511 M1 9.011 Procedure Note: Patient was consented for right acromioclavicular joint injection with fluoroscopic guidance. Risks were discussed including but not limited bleeding infection, possibility of intravascular injection sequelae spread of local anesthetic and numbness side effects of steroid medication exposure to fluoroscopy and portals regarding pain control. Patient understands wished to proceed. Patient supine position under sterile prep and drape using C-arm fluoroscopic guidance patient's right shoulder was visualized and using 25-gauge needle 1% lidocaine was used to topically anesthetized area over the chromic clavicular joint joint on the right. Using a 25-gauge Quincke needle with stylette the joint was entered under direct fluoroscopic visualization without difficulty stylet was removed at this time 1 cc of contrast was injected with good intra- articular spread in the shoulder joint without uptake. At this time 2 cc of 0.25% bupivacaine and 80 mg Depo-Medrol was then injected into the joint. Needle was removed and sterile bandage was applied. Patient tolerated the procedure well and had no complications. DILMA BROWN MD Aug 16, 2021 10:21
== END | disposition home or self-care (01) ==
LOC: PNCL 09:22
PROVIDERS: ATTEND Anesthesiology
DX: M19.011 Primary osteoarthritis, right shoulder (principal); M17.11 Unilateral primary osteoarthritis, right knee; M51.14 Intervertebral disc disorders with radiculopathy, thoracic region; M50.10 Cervical disc disorder with radiculopathy, unspecified cervical region; F32.9 Major depressive disorder, single episode, unspecified; F17.210 Nicotine dependence, cigarettes, uncomplicated; Z79.899 Other long term (current) drug therapy; Z98.890 Other specified postprocedural states; Z79.82 Long term (current) use of aspirin; Z88.8 Allergy status to other drugs, medicaments and biological substances; Z88.1 Allergy status to other antibiotic agents; Z72.89 Other problems related to lifestyle
CPT/HCPCS: 20610; 77002; J1040; J3490; Q9965; 20605

== ENCOUNTER 2021-09-21 14:39 | Emergency (ER) | payer MEDICARE ==
[~2021-09-21] VITALS: Ht 154.9 cm; Wt 51.7 kg
[~2021-09-21 14:39] MED LIST changes: -BUPIVACAINE MPF 0.25% 10 ML VIAL. ONE; -IOHEXOL 180 MG/ML 10 ML VIAL. ONE; -methylPREDNISolone ACETATE 80 MG/ML VIAL. ONE
[2021-09-21 15:02] VITALS: BP 178/75
[2021-09-21] MEDS ORDERED: fentaNYL PF VIAL 100 MCG/2 ML VIAL ONE (15:36)
[2021-09-21] MEDS ORDERED: fentaNYL PF VIAL 100 MCG/2 ML VIAL IVP ONE ×3 (15:45→16:30)
--- NOTE | 2021-09-21 15:50 | PHYS DOC ---
Past Medical History Past Medical History: CAD, Depression, Hypertension Additional Past Medical Histor: patient states she 'can't remember because she's in too much pain' Past Surgical History: Other Additional Past Surgical Histo: pericardial window 01/16/2016,pericardiocentesis 07/2015,cataracts,back sx Smoking Status: Current Every Day Smoker Alcohol Use: Rarely General Adult EDM: Chief Complaint: SHOULDER INJURY HPI: HPI: Patient is a 76-year-old female presenting with daughter via POV for right shoulder pain. States she was trying to wash mirrors and window on her vehicle when she noticed a pop and acute right shoulder pain. States she had episode of her shoulder popping out like this in the past as a child but has not had any reoccurrence of this. No prior surgery to her right shoulder. States it hurts with all ranges of motion and feels out of place. She is otherwise been at baseline health with no other trauma or reportable condition. She is not on any blood thinners or high risk medications Review of Systems: Review of Systems: Fourteen body systems of review of systems have been reviewed. See HPI for pertinent positives and negative responses, other gomez all other systems are negative, non-pertinent or non-contributory Heart Score: C/O Chest Pain: No Risk Factors: Risk Factors: DM, Current or recent (<one month) smoker, HTN, HLP, family history of CAD, obesity. Risk Scores: Score 0 - 3: 2.5% MACE over next 6 weeks - Discharge Home Score 4 - 6: 20.3% MACE over next 6 weeks - Admit for Clinical Observation Score 7 - 10: 72.7% MACE over next 6 weeks - Early Invasive Strategies Current Medications: Current Medications Medications (Trade) Dose Ordered Sig/Stephon Start Time Stop Time Status Last Admin Dose Admin Fentanyl Citrate (Fentanyl 2ml Vial) 100 mcg STK-MED ONCE 09/21/21 15:36 09/21/21 15:37 DC Allergies: Allergies: Allergies Coded Allergies Type Severity Reaction Last Updated Verified amitriptyline Adverse Reaction Intermediate Hives 09/21/21 Yes bupropion Adverse Reaction Intermediate Hives 09/21/21 Yes omeprazole Adverse Reaction Intermediate Hives 09/21/21 Yes Physical Exam: PE: Constitutional: Well developed, well nourished, moderate distress due to pain but overall non-toxic appearance. HENT: Normocephalic, atraumatic, bilateral external ears normal, oropharynx moist, no oral exudates, nose normal. Eyes: PERRLA, EOMI, conjunctiva normal, no discharge. Neck: Normal range of motion, no tenderness, supple, no stridor. Cardiovascular: Heart rate regular, sinus rhythm, no murmurs rubs or gallops Lungs & Thorax: Bilateral breath sounds clear to auscultation Abdomen: Bowel sounds normal, soft, no tenderness, no masses, no pulsatile masses. Nonsurgical abdomen, no peritoneal signs Skin: Warm, dry, no erythema, no rash. Back: No tenderness, no CVA tenderness. Extremities: Tenderness present to right shoulder with palpable and visible abnormality consistent with likely anterior shoulder dislocation, no cyanosis, no clubbing, ROM diminished in all ranges of motion of right upper extremity due to pain, no edema. Neurologic: Alert and oriented X 3, grossly normal motor & sensory function, no focal deficits noted. Psychologic: Anxious affect and mood Current Patient Data: Vital Signs: Vital Signs Date Time Temp Pulse Resp B/P (MAP) Pulse Ox O2 Delivery O2 Flow Rate FiO2 09/21/21 15:44 Room Air 09/21/21 15:02 97.5 64 17 178/75 (109) 96 97.5 EKG: EKG: [] Radiology/Procedures: Radiology/Procedures: XR CHEST 1V, XR SHOULDER_RIGHT 2+ VIEWS Clinical History: Reason: RIGHT SHOULDER PAIN WITH OVERHEAD ACTIVITY / Spl. Instructions: / History: One view chest: Technique: AP view of the chest was obtained at 09/21/2021 3:20 PM. Comparison: None. Findings: The cardiomediastinal silhouette is normal. The pulmonary vasculature is normal. There is linear opacity in the lung bases. Impression: Basilar infiltrates likely discoid atelectasis. End of impression Two-view right shoulder AP and Y views The right humeral head projects anterior inferior and medial to the glenoid. Remaining visualized osseous structures appear normal. IMPRESSION: Anterior dislocation right shoulder. Electronically signed by: Osiel Petit III, MD (09/21/2021 3:45 PM) [id number] ///////////////////////// INDICATION: Reason: S/P RIGHT SHLD REDUCTION / Spl. Instructions: / History: COMPARISON: Earlier same day IMPRESSION: Right shoulder: 2 views obtained. Interval reduction of previously identified right shoulder dislocation. No definite acute fracture line is seen. Electronically signed by: Fred Flaherty MD (09/21/2021 5:15 PM) DESKTOP- [id number] Course & Med Decision Making: Course & Med Decision Making ABCs unremarkable HPI physical exam and radiographs confirmed right anterior shoulder dislocation Risk first benefits of conscious sedation versus alternative means of closed shoulder reduction discussed, patient and daughter at bedside wanting to move forward without conscious/deep sedation As such, verbal consent obtained from both patient and daughter to perform closed reduction at bedside with fentanyl use only. This was subsequently put back in place with assistance from OMS 4 and RN at bedside with palpable click Repeat radiograph showed adequate reduction with improvement in pain. I advised patient to utilize provided sling, use NSAIDs and Tylenol for pain control, and close Ortho follow-up in outpatient setting for presenting issue today Patient and daughter worried about uncontrolled pain at home and requesting something stronger. After extensive risk first benefits conversation and disclosing negative side effects that include increased chance for addiction, respiratory depression and even , strongly low-dose and short-term prescription of narcotic pain medication given Ultimately, patient and daughter discharged with close PCP and Ortho follow-up in outpatient setting for successfully reduced right shoulder Dragon Disclaimer: Gladis Disclaimer: This electronic medical record was generated, in whole or in part, using a voice recognition dictation system. Joint Reduction Joint Reduction : Joint Reduction Site: shoulder (R) Conscious Sedation: No Reduction Attempts: 1 Pre-Procedure NV Exam: Yes Post-Procedure NV Exam: Yes Post Joint Reduction Film: joint reduced Progress Consent: Verbal consent obtained by patient and daughter at bedside as they had full capacity and new all risks, benefits, and alternatives of stated reduction procedure A timeout was taken to ensure the proper patient and proper procedure were accounted for. A traction/countertraction technique was used to reduce the dislocation to in anatomical position. Subsequent oscillation in traction whilst abducting patient's right upper extremity causes palpable click and reduction at approximately 90 degrees abduction There is excellent motor, sensory and neurovascular qualities intact prior to and after the procedure Soft splint was placed for immobilization The patient tolerated the procedure well without any reported nor observed complications Postprocedural x-ray obtained showing improvement in satisfactory closed reduction Departure Departure Impression: Primary Impression: Anterior dislocation of right shoulder Disposition: 01 HOME / SELF CARE / HOMELESS Condition: IMPROVED Referrals: JAMES PALACIOS MD (PCP) Additional Instructions: As discussed prior to ER departure, you were seen, evaluated and treated for a right anterior shoulder dislocation. This was sufficiently put back in place and confirmed with repeat radiograph of your chest. A light sling was placed and instructions for continued ibuprofen/NSAID and Tylenol is advised for ongoing pain control. Extensive discussion was had regarding use of opiate medications, as such, an extremely short-term dose of hydrocodone was prescribed to for use of severe pain only. Please use this as instructed per bottle instr uctions as abuse or misuse could lead to addiction, respiratory depression and even . You need to contact your primary care physician first thing on Friday to review ER visit today and need for close outpatient follow-up with orthopedic surgeon for your right anterior shoulder dislocation. If any concerning signs or symptoms present prior to outpatient follow-up please do not hesitate to come back for repeat evaluation. Is a pleasure to take care of you and I wish you the best going forward Scripts Hydrocodone Bit/Acetaminophen (HYDROCODONE-APAP 5-325 ) 1 Tab Tablet 0.5 TAB PO PRN Q6HRS PRN for PAIN, #10 TAB 0 Refills Prov: KARY STEWART DO 09/21/21 KARY STEWART DO Sep 21, 2021 15:50
--- NOTE | 2021-09-21 17:18 | RAD ---
INDICATION: Reason: S/P RIGHT SHLD REDUCTION / Spl. Instructions: / History: COMPARISON: Earlier same day IMPRESSION: Right shoulder: 2 views obtained. Interval reduction of previously identified right shoulder dislocat ion. No definite acute fracture line is seen. Electronically signed by: Fred Flaherty MD (09/21/2021 5:15 PM) [id number]
[2021-09-21] MEDS ORDERED: HYDR-2761 PO (17:34)
== END 2021-09-21 17:58 | disposition home or self-care (01) ==
LOC: ER 14:39
DX: S43.004A Unspecified dislocation of right shoulder joint, initial encounter (principal); R07.89 Other chest pain; I10 Essential (primary) hypertension; I25.10 Atherosclerotic heart disease of native coronary artery without angina pectoris; F17.200 Nicotine dependence, unspecified, uncomplicated; Z88.8 Allergy status to other drugs, medicaments and biological substances; X50.9XXA Other and unspecified overexertion or strenuous movements or postures, initial encounter; Y93.89 Activity, other specified; Y92.89 Other specified places as the place of occurrence of the external cause; Y99.8 Other external cause status
CPT/HCPCS: 23650; 71045; 73030; 99285; A4565; J3010